=== PATIENT | male | born 1980 | race Caucasian/White ===

== ENCOUNTER 2024-08-29 13:53 | Emergency (ER) | payer OTHER, SELFPAY ==
--- NOTE | 2024-08-29 13:45 | RT.EKG_ITS ---
APPROVED REPORT Exam: Resting ECG Reason for Exam: DETOX Patient Location: E HR:86 bpm ECG Measurements Heart Rate 86 AXIS ME 137 P 62 QRSd 105 QRS 102 QT 393 T 0 QTc 470 Conclusion Sinus rhythm, rate 86 No interval abnormalities No STEMI Isolated T wave inversion lead III No priors available for comparison
[2024-08-29 13:52] VITALS: BP 123/74; PULSE 92; RESP 20; TEMP 36.3; O2SAT 94
--- NOTE | 2024-08-29 14:02 | W.ED.GENAD ---
Discharge Plan Disposition Patient Disposition: Against Medical Advice Condition: Stable Discharge Details Clinical Impression: Alcohol withdrawal, Asthma Primary Care Provider: Unknown,Unknown ED Provider: Radha Parson Discharge Instructions Instructions: Alcohol Use Disorder ED Additional Instructions: You were seen in the emergency department today for evaluation of alcohol withdrawal symptoms, low oxygen, and difficulty eating and drinking. In our department note a full physical examinations performed, had an EKG that was reassuring, and had vital signs that were improved. However, at this time you have determined that you want to leave the hospital AGAINST MEDICAL ADVICE. 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 You understand the risks of refusing these interventions and evaluations, and understand that you can return to the emergency department at any time to reestablish care. Please follow-up with your primary care provider in the next few days to discuss this visit and any symptoms that change, worsen, or persist. Thank you for allowing us to be part of your care. HPI General Mode of arrival: EMS. Date/Time Provider Initiated Documentation: 08/29/24 14:02. Limitations to Documentation: no limitations. Information obtained by: patient, police, EMS and old records reviewed. HPI Narrative: This is a 44-year-old male patient with a past medical history significant for alcohol use disorder, asthma, who is brought in by EMS from the half-way with low oxygen saturations, withdrawal symptoms, poor p.o. intake. Per EMS and police report, the patient was arrested yesterday, states that he was not able to take his things from the court house. He was at [facility] and received phenobar[place], and was discharged to police custody on a Librium taper. He states that he has been able to take this medication. The patient was found by fire on initial arrival to be saturating at 88%, placed on nasal cannula to good effect. The patient reports that he has not had his Symbicort which is his typical asthma medication. He states that he has had poor oral intake, but was able to start eating and drinking again today, and feels like his withdrawal symptoms are abating. He states he does have a history of alcohol withdrawal seizure but it was very remote, has not seized during least recent withdrawals. On arrival to our facility the patient states that he wants to use a phone to call his mother, and he was informed by the conservation officer that he is not able to contact any outside people until they return back to the half-way due to their safety policies. When he learned this, the patient states that the reason why he came to the hospital today was hoping he would use the phone so that he could go and get his things and post his bail. Upon learning that that is not the case, he states that he no longer wants to be evaluated, wants to go back to the half-way/court house to get his incarceration/detainment sorted out. General Stated Complaint: GenMedical JERZY: 3 Exam Narrative Exam Narrative: Gen: awake and alert, in no apparent distress. Appears well nourished. HEENT: PERRL at 2 mm, EOMs full and without nystagmus. External ears and nose normal, mucous membranes moist. No tongue fasciculations Neck: Supple, full range of motion, no observable masses Lungs: No increased work of breathing, lung sounds clear and equal bilaterally with few scattered wheezes, no rhonchi, or rales. CV: Heart with regular rate and rhythm, no murmurs auscultated. Strong and symmetrical radial pulses. Abdomen: Soft, nondistended, non-tender to palpation. No rigidity, rebound tenderness, or guarding. MSK: No joint swelling, no redness. Full ROM without limitation, no external traumatic findings. Skin: No rashes or lesions to visualized skin. Normal color, warm, and dry. Neuro: Cranial nerves II-XII intact and symmetrical bilaterally. 5/5 strength in all muscle groups x4 extremities within the limits of the shackles. No sensory deficits Psych: Appropriate for situation. Course Vital Signs Vital signs: Vital Signs Temperature 36.3 C L 08/29/24 13:52 Pulse 92 H 08/29/24 13:52 Respiratory Rate 20 08/29/24 13:52 Blood Pressure 123/74 08/29/24 13:52 Pulse Oximetry 94 08/29/24 13:52 Temperature 36.3 C L 08/29/24 13:52 Pulse 92 H 08/29/24 13:52 Respiratory Rate 20 08/29/24 13:52 Blood Pressure 123/74 08/29/24 13:52 Pulse Oximetry 94 08/29/24 13:52 Oxygen Delivery Method Room Air 08/29/24 13:52 Oxygen Flow Rate 0 08/29/24 13:52 Medical Decision Making This is a 44-year-old male patient presenting for evaluation of low oxygen, poor p.o. intake, alcohol withdrawal. My initial differentials considered based on this chief complaint included but are not limited to asthma exacerbation, pneumonia, bronchitis, URI, patient has no reported cardiac history nor evidence of fluid overload on physical examination to suggest pulmonary edema or pleural effusion. He is not tachycardic, though pulmonary embolism was considered. Regarding his alcohol withdrawal, he does not appear to be in significant or severe alcohol withdrawal at this time, though certainly he is a high risk person with his history of alcohol withdrawal seizures. I considered metabolic and electrolyte derangements, dehydration, kidney injury in the setting of his poor p.o. intake, though I am reassured to hear that he is tolerating p.o. at this time. We were able to repeat the patient's vital signs, he is now saturating at 94% on room air, has a normal heart rate and appropriate blood pressure. He is afebrile. A twelve-lead EKG was obtained and reviewed by myself, unfortunately no priors are available for comparison, but he is noted to be in a normal sinus rhythm with a rate of 86, with no STEMI criteria met. He does have some isolated T wave inversion in lead III. I had an extended discussion with this patient regarding the risks of leaving the hospital AGAINST MEDICAL ADVICE prior to workup, and the benefits of staying to include further workup such as laboratory studies, imaging, and connection with the middle school baseball coach. The patient verbalizes understanding of these risks, we will begin the care of the correctional team and supervised after discharge, and he continues to assert that he wants to leave the hospital AMA. I completed the AMA form with him in the presence of GIULIANO Gonsalves, patient understands he can return anytime for reevaluation. The patient and the correctional team left this hospital without incident. Radha Parson MD [facility] All Active Problems (Updated 08/29/24 @ 14:04 by Radha Parson MD) Asthma (Chronic) Alcohol withdrawal (Acute) Social History Smoking risk assessment performed?: No
== END 2024-08-29 14:04 | disposition left against medical advice (07) ==
LOC: ER 14:18
PROVIDERS: Emergency Provider Emergency Medicine
DX: F10.939 Alcohol use, unspecified with withdrawal, unspecified; J45.909 Unspecified asthma, uncomplicated; Z53.29 Procedure and treatment not carried out because of patient's decision for other reasons
CPT/HCPCS: 99284; 99285; 93005; 93010

== ENCOUNTER 2024-08-29 19:45 | Emergency (ER) | payer OTHER, SELFPAY ==
[2024-08-29] VITALS (23 sets, daily range): BP systolic 119–145; BP diastolic 71–89; PULSE 76–95; RESP 6–16; O2SAT 91–100
--- NOTE | 2024-08-29 20:00 | W.ED.GENAD ---
Discharge Plan Disposition Patient Disposition: [facility] Condition: Stable Discharge Details Clinical Impression: Asthma, Pneumonia Primary Care Provider: Unknown,Unknown ED Provider: Radha Parson Home Meds and New Rx's Prescriptions: New azithromycin 250 mg tablet 250 mg PO DAILY 4 Days Qty: 4 0RF Rx Instructions: start on day 2 of therapy (08/30/2024) prednisone 20 mg tablet 40 mg PO DAILY 4 Days Qty: 8 0RF Rx Instructions: Start 08/30/2024 Discharge Instructions Instructions: Community-Acquired Pneumonia, Adult (DC) Additional Instructions: You were seen in the emergency department for reevaluation of shortness of breath and cough, which is likely due to pneumonia and asthma. In our department you had a full physical examination, had an x-ray that showed infiltrates in your bilateral lungs concerning for pneumonia, received a breathing treatment to good effect. I have given you both of your inhalers to be taken as prescribed, Symbicort twice a day, albuterol as needed as often as every 4 hours. You have been started on an antibiotic called azithromycin, you received your first dose here in the emergency department and will continue to take this medication daily for the next 4 days. You are also on a steroid burst, you will continue to take prednisone daily for a total of 5 days as well. Please follow-up with your primary care provider in the next few days to discuss this visit and any symptoms that change, worsen, or persist. Thank you for allowing us to be part of your care. HPI General Mode of arrival: EMS. Date/Time Provider Initiated Documentation: 08/29/24 19:53. Limitations to Documentation: no limitations. Information obtained by: patient, police, EMS and old records reviewed. HPI Narrative: This is a 44-year-old male patient with a history of alcohol use disorder in recent withdrawal/remission, on a Librium taper, and a history of asthma presenting for evaluation of low O2 sats and difficulty breathing. The patient is currently incarcerated, was seen at this facility several hours ago for complaints of alcohol detox, and left AMA after he learned that he would not be able to utilize the phone to call his mother to come get him since he was being detained. At that time, the patient was noted to be oxygenating appropriately, without significant wheezing, and was transported by corrections back to the assisted. The patient reports that he was unable to have a family member orange picker machine operator his medications from the court house, which include his Symbicort and albuterol. He has not used any of these medications today. He did get his dose of Librium at 5 AM, and did [place] [facility] [place]. The patient reports that he feels like he has developed a junky cough with white to yellow sputum. Corrections notes that he desaturated to the high 80s in their med bed, typically while dozing off or sleeping. Related Data Home Medications ?Medication ?Instructions ?Recorded ?Confirmed azithromycin 250 mg tablet 250 mg PO DAILY 4 days #4 tabs 08/29/24 prednisone 20 mg tablet 40 mg (2 x 20 mg) PO DAILY 4 days 08/29/24 #8 tabs Previous Rx's ?Medication ?Instructions ?Recorded azithromycin 250 mg tablet 250 mg PO DAILY 4 days #4 tabs 08/29/24 prednisone 20 mg tablet 40 mg (2 x 20 mg) PO DAILY 4 days 08/29/24 #8 tabs Allergies Allergy/AdvReac Type Severity Reaction Status Date / Time No Known Allergies Allergy Verified 08/29/24 19:53 General Stated Complaint: ETOHWithdr JERZY: 3 Exam Narrative Exam Narrative: Gen: Awake and alert, in no apparent distress HEENT: Non-icteric sclera, PERRL Neck: Supple Lungs: No apparent respiratory distress, normal respiratory effort. The patient's lung sounds are diminished bilaterally, I note no significant expiratory wheezing or prolonged expiratory phase CV: Appears well perfused, heart with regular rate and rhythm, strong distal pulses Abdomen: Non-distended MSK: Moves 4 extremities without apparent limitation in ROM, no peripheral edema Skin: Visualized skin without rashes, cyanosis. Neuro: Normal Gait, no obvious focal deficits or facial asymmetry. Speaks in full, clear sentences. Psych: Appropriate for situation. Course Vital Signs Vital signs: Vital Signs Pulse 85 08/29/24 19:45 Respiratory Rate 16 08/29/24 19:45 Blood Pressure 127/81 08/29/24 19:45 Pulse Oximetry 95 08/29/24 19:45 Pulse 85 08/29/24 19:45 Respiratory Rate 16 08/29/24 19:45 Blood Pressure 127/81 08/29/24 19:45 Pulse Oximetry 95 08/29/24 19:45 Oxygen Delivery Method Room Air 08/29/24 19:45 Oxygen Flow Rate 0 08/29/24 19:45 Pain Level 0 08/29/24 19:45 Medical Decision Making This is a 44-year-old male patient presenting for evaluation of hypoxia, shortness of breath and cough with productive sputum. Differential includes but is not limited to reactive airway disease exacerbation, pneumonia, bronchitis. Reassuringly, the patient currently has a CIWA score of 0, and is being appropriately treated for his alcohol withdrawal. He has no evidence on exam for fluid overload to suggest pulmonary edema to suggest ACS. He is tolerating oral intake and my concern for metabolic or electrolyte derangement and dehydration is lower. I discussed next steps of care with this patient, who is currently saturating appropriately on room air. He declines laboratory studies which I feel is not unreasonable, but excepts an x-ray of his chest as well as his albuterol and Symbicort inhalers. -On reassessment, the patient reports that he still feels like his breathing is raspy, and I do note some transient desaturations to 89% / 90%. For this reason I provided the patient with a duo nebulizer treatment. He also received his first dose of prednisone. -X-ray reviewed by myself and I did review the radiology report. He has bilateral patchy lower lobe infiltrates, in the context of his sputum change I am concerned I do not know any history of cardiac disease or heart failure nor evidence of fluid overload to significantly increase my concern that this represents pulmonary edema. After the breathing treatment the patient's saturations improved significantly to the 94-97 range on room air, and his lungs opened up and ongoing wheezing or crackles. I provided the patient with his first dose of azithromycin, I was able to talk to the nurse at the medical clinic at the correctional facility, who will be able to continue his Librium taper, steroid burst, and course of antibiotics, and I provided the patient with an albuterol and Symbicort inhaler to replace the ones that he does not have access to. At this time, the patient has had a full medical evaluation and is safe for discharge to home. They are hemodynamically stable, ambulatory, and tolerating PO. They are understanding of the follow-up plan and return precautions. They left our facility without incident. Radha Parson MD [facility] All Active Problems (Updated 08/29/24 @ 22:13 by Radha Parson MD) Pneumonia (Acute) Asthma (Chronic) Alcohol withdrawal (Acute) Social History Smoking/Tobacco Use Status: Current-Occasional Smoking risk assessment performed?: Yes Alcohol Intake: former Drug use: Occasionally Housing: other PAWSS Have you Been Recently Intoxicated or Drunk Within the Last 30 days?: Yes Have you Ever Experienced Previous Episodes of Alcohol Withdrawal?: No Have you ever Experienced Withdrawal Seizures?: Yes Have you ever Experienced Delirium Tremens(DT)s?: Yes Have you ever undergone Alcohol Rehabilitation Treatment (i.e, inpt ot outpatient treatment programs)?: No Have you ever Experienced Blackouts?: Yes Have you ever Combined Alcohol with other Downers within the last 90 days?: Yes Have you ever Combined Alcohol with any other Substance of Abuse during the last 90 days?: Yes Positive Blood Alcohol level on Presentation? [PCS.BAL]: No Evidence of Increased Autonomic Activity (i.e. HR>120, tremor, sweating, agitation, nausea)?: No Result: 6
[2024-08-29] MEDS: Budesonide/Formoterol 80/4.5 6.9 GM 60 PUFF INH IH (20:14)
[2024-08-29] MEDS: Albuterol HFA 8 GM 60 PUFF INH IH (20:14)
--- NOTE | 2024-08-29 20:45 | DI.RAD_ITS ---
Exam(s) XR CHEST 2V PA LATERAL EXAM: XR CHEST 2V PA LATERAL CLINICAL HISTORY: SOB cough. TECHNIQUE: 2D digital imaging was performed. COMPARISON: No exams were available for comparison FINDINGS: 2 views: Heart size is normal. The mediastinum is not widened. Increased markings over the lower lung cabrera appears to be exaggerated by gynecomastia in this patient. There are no confluent infiltrates nor pleural effusions. No pulmonary edema.. IMPRESSION: Relatively clear lung cabrera. The increased markings towards the lung bases appears to be exaggerated by what is probably bilateral gynecomastia. DATA REPOSITORY: RADIATION DOSE DELIVERED:
[2024-08-29] MEDS: Albuterol/Ipratropium 3 ML UPD VIAL UPD (21:46)
--- NOTE | 2024-08-29 22:05 | DI.VRAD_ITS ---
PROCEDURE INFORMATION: Exam: XR Chest Exam date and time: 08/29/2024 9:28 PM Age: 44 years old Clinical indication: Cough and shortness of breath TECHNIQUE: Imaging protocol: Radiologic exam of the chest. Views: 2 views. COMPARISON: No relevant prior studies available. FINDINGS: Lungs: Patchy infiltrates within the lower lobes of the lungs may represent acute developing lobar pneumonia. There are diffuse interstitial infiltrates present. This may represent cardiogenic versus noncardiogenic edema. An acute inflammatory process and/or infectious process/pneumonia are not excluded. Pleural spaces: There is no evidence of pneumothorax. There are no pleural effusions present. Heart/Mediastinum: The mediastinal contour is normal. The cardiac structures are normal. Bones/joints: The skeletal structures and soft tissues show no evidence of fracture or other acute processes. Soft tissues: The soft tissues of the extrathoracic region are unremarkable. IMPRESSION: 1. There are diffuse interstitial infiltrates present. This may represent cardiogenic versus noncardiogenic edema. An acute inflammatory process and/or infectious process/pneumonia are not excluded. 2. Patchy infiltrates within the lower lobes of the lungs may represent acute developing lobar pneumonia. Dictated and Authenticated by: Neto Herrera MD. [facility] Berny Garcia MD
[2024-08-29] MEDS: Azithromycin 250 MG TAB 500 MG PO (22:13)
[2024-08-29] MEDS: predniSONE 20 MG TAB 40 MG PO (22:13)
== END 2024-08-29 22:25 ==
PROVIDERS: Emergency Provider Emergency Medicine
DX: J45.909 Unspecified asthma, uncomplicated (principal); J18.9 Pneumonia, unspecified organism; F17.200 Nicotine dependence, unspecified, uncomplicated
CPT/HCPCS: 94640; 99283; 71046; J7512; J7620